=== PATIENT | female | born 2000 | race Two or more races ===

== ENCOUNTER 2021-02-21 13:50 | Outpatient (CLI) | payer OTHER | END 2021-02-21 13:53 | disposition home or self-care (01) | LOC: PPH VACUNA 13:50 | DX: Z23 Encounter for immunization (principal) ==

== ENCOUNTER 2024-12-18 20:50 | Outpatient (CLI) | payer OTHER ==
[2024-12-18 19:56] VITALS: BP 111/71
[2024-12-18] MEDS ORDERED: PRENATAL TABLE1 EAC1 (21:07)
[2024-12-18] MEDS ORDERED: RINGERS SOLUTION,LACTATED 1,000 ML IV SCH (21:15)
[2024-12-18 21:52] LABS: HEMATOCRIT 28.3 % (36.0-45.00); HEMOGLOBIN 9.6 g/dL (12.0-15.00); MEAN CELL VOLUME 76.9 fL (80.00-100.00); MEAN CORPUSCULAR HEMOGLOBIN 26.2 pg (27.00-32.0); MEAN CORPUSCULAR HGB CONC 34.1 g/dl (32.0-36.0); PLATELET COUNT 181 K/uL (150-450); RED BLOOD COUNT 3.67 M/uL (4.00-6.00); RED CELL DISTRIBUTION WIDTH 14.3 % (11.5-14.5)
[2024-12-18 21:56] LABS: PH,URINE 5.5 (5.0-8.0); URINE APPEARANCE Cloudy; URINE BILIRRUBIN Negative (NEGATIVE); URINE BLOOD Negative; URINE COLOR Yellow; URINE GLUCOSE Negative (NEGATIVE); URINE KETONE Negative (NEGATIVE); URINE LEUKOCYTE Negative; URINE NITRATE Negative; URINE PROTEIN Negative (NEGATIVE)
[2024-12-18 22:00] LABS: URINE BACTERIA 6035.3 uL (0.0-1933); URINE EPITHELIAL CELLS 36.8 uL (0.0-38.8); URINE RBC 23.8 uL (0.0-20.8); URINE WBC 83.7 uL (0.0-23.2)
[2024-12-18 22:10] LABS: URINE CAST 0.44 uL (0.0-1.40); URINE CRYSTALS FEW /HPF
[2024-12-18] MEDS ORDERED: CEFAZOLIN SODIUM 1,000 MG VIAL IV ONE (22:30)
[2024-12-18 23:11] VITALS: BP 104/66
[2024-12-19 03:40] VITALS: BP 100/65
[2024-12-19] MEDS ORDERED: CEFAZOLIN SODIUM 1,000 MG VIAL IV SCH (06:00)
[2024-12-19] MEDS ORDERED: AMPICILLIN TRI500 MG PO (06:23)
[2024-12-19] MEDS ORDERED: AMPICILLIN SODIUM 2,000 MG VIAL IV STA (06:27)
[2024-12-19] MEDS ORDERED: FERROUS SULFAT325 MG PO (06:35)
[2024-12-19 07:05] VITALS: BP 100/64
[2024-12-19 08:53] VITALS: BP 96/60
== END 2024-12-19 09:03 | disposition home or self-care (01) ==
LOC: OBS/DEL 20:50
PROVIDERS: ATTEND Specialist
DX: O23.43 Unspecified infection of urinary tract in pregnancy, third trimester (principal); N39.0 Urinary tract infection, site not specified; O23.593 Infection of other part of genital tract in pregnancy, third trimester; Z3A.32 32 weeks gestation of pregnancy